=== PATIENT | female | born 2000 | race Caucasian/White ===

== ENCOUNTER 2024-11-19 12:35 | Emergency (ER) | payer OTHER, SELFPAY ==
[2024-11-19] MEDS ORDERED: PRENTAB9 PO (13:18)
== END 2024-11-19 12:44 | disposition admitted as inpatient to this hospital (09) ==
LOC: M ED 12:35
DX: Z53.21 Procedure and treatment not carried out due to patient leaving prior to being seen by health care provider (principal)

== ENCOUNTER 2024-11-19 12:49 | Outpatient (CLI) | payer OTHER ==
[~2024-11-19] VITALS: Ht 167.6 cm; Wt 112.4 kg
[2024-11-19] MEDS ORDERED: PRENTAB9 PO (13:18)
[2024-11-19 13:25] VITALS: BP 119/76
== END 2024-11-19 14:20 | disposition home or self-care (01) ==
LOC: M LDO 12:49
PROVIDERS: ATTEND Advanced Practice Midwife
DX: O36.8120 Decreased fetal movements, second trimester, not applicable or unspecified (principal); Z3A.24 24 weeks gestation of pregnancy; Z14.8 Genetic carrier of other disease
CPT/HCPCS: 59025; 76815; G0463

== ENCOUNTER → 2024-12-13 | Outpatient (CLI) | payer OTHER ==
[~2024-12-13] MED LIST: PRENTAB9 PO
[2024-12-13 16:01] LABS: PLATELET COUNT, AUTOMATED 326 10^3/uL (150-450)
[2024-12-13 16:24] LABS: GLUCOSE CHALLENGE TEST 1 HOUR 98 MG/DL (LESS THAN 140)
[2024-12-13 17:10] LABS: HEPATITIS C VIRUS ABY INDEX < 0.02 INDEX (<0.8); HIV 1&2 SCREEN NEGATIVE (NEGATIVE)
[2024-12-13 17:23] LABS: Trichomonas vaginalis (AMP) NOT DETECTED (NEGATIVE)
[2024-12-13 17:45] LABS: GC DNA AMPLIFICATION NEGATIVE (NEGATIVE)
== END ==
LOC: M PLALAB 12:57
PROVIDERS: ATTEND Advanced Practice Midwife
DX: O99.212 Obesity complicating pregnancy, second trimester (principal)

== ENCOUNTER → 2024-12-20 | Outpatient (CLI) | payer OTHER | LOC: M PLALAB 11:13 | PROVIDERS: ATTEND Advanced Practice Midwife | DX: O36.5990 Maternal care for other known or suspected poor fetal growth, unspecified trimester, not applicable or unspecified (principal); Z3A.00 Weeks of gestation of pregnancy not specified ==

== ENCOUNTER → 2024-12-24 | Outpatient (CLI) | payer OTHER | LOC: M WHC 09:15 | PROVIDERS: ATTEND Advanced Practice Midwife | DX: O36.5990 Maternal care for other known or suspected poor fetal growth, unspecified trimester, not applicable or unspecified (principal); Z3A.00 Weeks of gestation of pregnancy not specified ==

== ENCOUNTER → 2025-02-07 | Outpatient (REF) | payer OTHER | LOC: M PLALAB 15:16 | PROVIDERS: ATTEND Advanced Practice Midwife | DX: Z53.9 Procedure and treatment not carried out, unspecified reason (principal) ==